=== PATIENT | female | born 1950 | race Caucasian/White ===

== ENCOUNTER 2022-01-24 06:47 | Day surgery (SDC) | payer MEDICARE, BC ==
[~2022-01-24 06:47] MED LIST: Lactated Ringers 1,000 ML IV PRN; Sodium Chloride 0.9% 10 ML Syringe FLUSH PRN
[2022-01-24] MEDS ORDERED: Midazolam 1 MG/ML 2 ML SDV IV ONE (06:48)
[2022-01-24] MEDS ORDERED: fentaNYL 100 MCG/2 ML SDV IV ONE (06:48)
[2022-01-24] MEDS ORDERED: acetaZOLAMIDE 500 MG Cap.ER PO ONE (09:00)
== END 2022-01-24 09:45 | disposition home or self-care (01) ==
LOC: FB.SDS 06:47
PROVIDERS: ATTEND Ophthalmology
DX: H25.813 Combined forms of age-related cataract, bilateral (principal); D31.32 Benign neoplasm of left choroid; H50.05 Alternating esotropia; H52.03 Hypermetropia, bilateral; H21.81 Floppy iris syndrome; Z79.899 Other long term (current) drug therapy; Z79.82 Long term (current) use of aspirin; Z87.891 Personal history of nicotine dependence
CPT/HCPCS: A9270-GY; J2250; J3010; J3490; V2632

== ENCOUNTER 2022-02-07 06:39 | Day surgery (SDC) | payer MEDICARE, BC ==
[~2022-02-07 06:39] MED LIST changes: -Sodium Chloride 0.9% 10 ML Syringe FLUSH PRN
[2022-02-07] MEDS ORDERED: fentaNYL 100 MCG/2 ML SDV IV ONE (06:40)
[2022-02-07] MEDS ORDERED: Midazolam 1 MG/ML 2 ML SDV IV ONE (06:40)
[2022-02-07] MEDS ORDERED: Lactated Ringers 1,000 ML IV SCH (06:45)
[2022-02-07] MEDS: Sodium Chloride 0.9% 10 ML Syringe FLUSH PRN (07:50)
[2022-02-07] MEDS: acetaZOLAMIDE 500 MG Cap.ER PO ONE (09:16)
== END 2022-02-07 09:38 | disposition home or self-care (01) ==
LOC: FB.SDS 06:39
PROVIDERS: ATTEND Ophthalmology
DX: H25.813 Combined forms of age-related cataract, bilateral (principal); D31.32 Benign neoplasm of left choroid; H50.05 Alternating esotropia; H52.03 Hypermetropia, bilateral; H21.81 Floppy iris syndrome; Z85.3 Personal history of malignant neoplasm of breast; M85.80 Other specified disorders of bone density and structure, unspecified site; F17.210 Nicotine dependence, cigarettes, uncomplicated; F43.20 Adjustment disorder, unspecified; D75.89 Other specified diseases of blood and blood-forming organs; Z79.899 Other long term (current) drug therapy; Z79.82 Long term (current) use of aspirin
CPT/HCPCS: 00142-QZ; A9270-GY; J2250; J3010; J3490; V2632